=== PATIENT | female | born 1985 | race Caucasian/White ===

== ENCOUNTER 2019-10-01 23:35 | Emergency (ER) | payer SELFPAY ==
[~2019-10-01] VITALS: Ht 160 cm; Wt 65.9 kg
[~2019-10-01 23:35] MED LIST: ASCO10002 PO; ASPI1TAB31 PO; CHOL400C2 PO; DEXT20TA2 PO; OMEG1CAP16 PO; OMEP20CA5 PO; [UNRECOGNIZED DRUG - CODE] TP
--- NOTE | 2019-10-01 23:37 | PHYS DOC ---
Past History Past Medical History: Migraines Adult General Chief Complaint Chief Complaint: ".. I think it just my migraine.. I went to [facility] this morning.....they gave me a shot in the butt... but said they could not give me the full dose since I was driving my selft..." HPI HPI Patient is a 33 year old female who presents with above hx and complaints gr headache the entire day. Patient was seen and outpatient setting and received radiation IM injection for her discomfort. No history of travel or specific ill contacts. Patient denies any trauma. Patient states she's had previous CTs for her migraine headache evaluations available been negative. She states her migraines get this bad she needs IM or IV meds. Review of Systems Review of Systems Constitutional: Denies fever or chills [] Eyes: Denies change in visual acuity, redness, or eye pain [] HENT: Denies nasal congestion or sore throat [] Respiratory: Denies cough or shortness of breath [] Cardiovascular: No additional information not addressed in HPI [] GI: Denies abdominal pain, nausea, vomiting, bloody stools or diarrhea [] : Denies dysuria or hematuria [] Musculoskeletal: Denies back pain or joint pain [] Integument: Denies rash or skin lesions [] Neurologic: Plaints of headache, area denies focal weakness or sensory changes [] Endocrine: Denies polyuria or polydipsia [] All other systems were reviewed and found to be within normal limits, except as documented in this note. Family History Family History Noncontributory Current Medications Current Medications See nursing for home meds Allergies Allergies Allergies Coded Allergies Type Severity Reaction Last Updated Verified No Known Drug Allergies 11/01/13 No Physical Exam Physical Exam Constitutional: Well developed, well nourished, no acute distress, non-toxic appearance. [] HENT: Normocephalic, atraumatic, bilateral external ears normal, oropharynx moist, no oral exudates, nose normal. [] Eyes: PERRLA, EOMI, conjunctiva normal, no discharge. [] Neck: Normal range of motion, no tenderness, supple, no stridor. [] Cardiovascular:Heart rate regular rhythm, no murmur [] Lungs & Thorax: Bilateral breath sounds clear to auscultation [] Abdomen: Bowel sounds normal, soft, no tenderness, no masses, no pulsatile masses. [] Skin: Warm, dry, no erythema, no rash. [] Tattoos. Back: No tenderness, no CVA tenderness. [] Extremities: No tenderness, no cyanosis, no clubbing, ROM intact, no edema. [] Neurologic: Alert and oriented X 3, normal motor function, normal sensory function, no focal deficits noted. []DTRs +2 patella and brachial. Associate Professor Of Counseling equal. No drift. Patient ambulatory without problems. Psychologic: Affect normal, judgement normal, mood normal. [] EKG EKG [] Radiology/Procedures Radiology/Procedures CT deferred by patient[] Course & Med Decision Making Course & Med Decision Making Pertinent Labs and Imaging studies reviewed. (See chart for details) Patient follow-up primary care. Patient take Tylenol or ibuprofen for pain. Patient take Imitrex 100 mg at the beginning of headache. Not to take more than 200 mg in 24-hour period patient take Zofran as needed for nausea and vomiting. Patient return if any concerns. Impression- 1. Migraine headache 2. Positive drug screen marijuana and methamphetamine [] Dragon Disclaimer Dragon Disclaimer This electronic medical record was generated, in whole or in part, using a voice recognition dictation system. Departure Departure: Disposition: HOME/RESIDENCE PRIOR TO ADM Condition: STABLE Referrals: PCP,NO (PCP) Scripts Ondansetron Hcl (ZOFRAN) 8 Mg Tablet 8 MG PO QIDPRN PRN for NAUSEA, #30 BOTTLE Prov: JEREMI WATKINS MD 10/02/19 Sumatriptan Succinate (IMITREX) 100 Mg Tablet 100 MG PO DAILY for at begining of headache, #10 TAB Prov: JEREMI WATKINS MD 10/02/19 Narciso Disclaimer This chart was dictated in whole or in part using Voice Recognition software in a busy, high-work load, and often noisy Emergency Department environment. It may contain unintended and wholly unrecognized errors or omissions. JEREMI WATKINS MD Oct 01, 2019 23:37
[2019-10-01] MEDS ORDERED: IV RINGERS SOLUTION,LACTATED 1,000 ML IV SCH (23:39)
[2019-10-02] MEDS ORDERED: SUMAtriptan SUCC 6 MG/0.5 ML VIAL SQ ONE (00:15)
[2019-10-02] MEDS ORDERED: KETOROLAC 30 MG/ML VIAL. IVP ONE (00:15)
[2019-10-02] MEDS ORDERED: PROCHLORPERAZINE 10 MG/2 ML VIAL. IV ONE (00:15)
[2019-10-02] MEDS ORDERED: diphenhydrAMINE 50 MG/ML VIAL IVP ONE (00:15)
[2019-10-02 00:49] LABS: BARBITURATES NEG (NEG); BENZODIAZEPINES NEG (NEG); CANNABINOIDS POS (NEG); COCAINE NEG (NEG); METHADONE NEG (NEG); OPIATES NEG (NEG); PHENCYCLIDINE NEG (NEG)
[2019-10-02 00:49] LABS: CALCIUM 9.1 mg/dL (8.5-10.1); CREATININE 0.5 mg/dL (0.6-1.0); GFR 141.2; POTASSIUM 3.9 mmol/L (3.5-5.1)
[2019-10-02 00:53] LABS: ALBUMIN 4.1 g/dL (3.4-5.0); DIRECT BILIRUBIN 0.1 mg/dL (0.0-0.2); TOTAL BILIRUBIN 0.3 mg/dL (0.2-1.0); TOTAL PROTEIN 7.7 g/dL (6.4-8.2)
[2019-10-02 00:55] LABS: BILIRUBIN,URINE NEG (NEG); CLARITY,URINE HAZY; COLOR,URINE YELLOW; GLUCOSE,URINE NEG (NEG)
[2019-10-02 00:56] LABS: BASO % 0 % (0-3); EOS # 0.3 x10^3/uL (0.0-0.7); EOS % 3 % (0-3); HEMATOCRIT 46.5 % (36.0-47.0); HEMOGLOBIN 15.3 g/dL (12.0-15.5); LYMPH # 2.6 x10^3/uL (1.0-4.8); LYMPH % 23 % (24-48); MEAN CORPUSCULAR HEMOGLOBIN 29 pg (25-35); MEAN CORPUSCULAR HGB CONC 33 g/dL (31-37); MEAN CORPUSCULAR VOLUME 88 fL (79-100); MONO # 0.8 x10^3/uL (0.0-1.1); MONO % 7 % (0-9); NEUT # 7.7 x10^3uL (1.8-7.7); NEUT % 67 % (31-73); PLATELET COUNT 315 x10^3/uL (140-400); RED BLOOD COUNT 5.31 x10^6/uL (3.50-5.40); RED CELL DISTRIBUTION WIDTH 13.4 % (11.5-14.5); WHITE BLOOD COUNT 11.4 x10^3/uL (4.0-11.0)
[2019-10-02 00:56] LABS: BACTERIA,URINE FEW /HPF (0-FEW); NITRITE,URINE NEG (NEG); RBC,URINE OCC /HPF (0-2); SQUAMOUS EPITHELIAL CELL,UR FEW /LPF; WBC,URINE 0 /HPF (0-4)
[2019-10-02 00:58] LABS: AMPHETAMINE/METHAMPHETAMINE POS (NEG)
[2019-10-02] MEDS ORDERED: SUMA100T3 PO (01:47)
[2019-10-02] MEDS ORDERED: ONDA8TAB9 PO (01:48)
[2019-10-02 01:49] VITALS: BP 115/79
== END 2019-10-02 02:25 | disposition home or self-care (01) ==
LOC: ER 23:35
DX: G43.909 Migraine, unspecified, not intractable, without status migrainosus (principal); F12.10 Cannabis abuse, uncomplicated; F15.10 Other stimulant abuse, uncomplicated
CPT/HCPCS: 36415; 80048; 80076; 80307; 81001; 81025; 82550; 83690; 83735; 84443; 84484; 85025; 85610; 85730; 96372; 96374; 96375; 99284; J0780; J1200; J1885; J3030; J7120